=== PATIENT | female | born 1975 | race African-American/Black ===

== ENCOUNTER 2018-12-09 11:42 | Inpatient (IN) ==
[2018-12-09] MEDS ORDERED: PROMETHAZINE 25 MG/1 ML VIAL IM PRN (12:35)
[2018-12-09] MEDS ORDERED: DICYCLOMINE 10 MG CAPSULE PO PRN (12:38)
[2018-12-09] MEDS ORDERED: THIAMINE INJ 100 MG, FOLIC ACID INJ 1 MG, MULTIVITAMIN INJ 10 ML in SODIUM CHLORIDE 0.9... IV ONE (14:00)
[2018-12-09] MEDS: chlordiazePOXIDE 25 MG CAPSULE PO SCH ×2 (14:31→22:48)
[2018-12-09] MEDS: ONDANSETRON 4 MG/2 ML VIAL IV PRN (14:31)
[2018-12-09] MEDS: PREGABALIN 100 MG CAPSULE PO SCH ×2 (14:31→22:48)
[2018-12-09] MEDS: PANTOPRAZOLE 40 MG TABLET PO SCH (14:32)
[2018-12-09] MEDS: METHOCARBAMOL 750 MG TABLET PO PRN ×2 (14:34→23:45)
[2018-12-09] MEDS: HydrOXYzine PAMOATE 25 MG CAPSULE PO PRN (14:34)
[2018-12-09 14:56] LABS: Basophils % 0.3 % (0.0-0.8); Eosinophils # 0.1 10*3/uL (0.0-0.87); Eosinophils % 0.7 % (0.00-10.9); Hemoglobin 11.4 GM/DL (12.0-16.0); Immature Granulocytes % 0.3 %; Immature Granulocytes Absolute 0.03 #; Lymphocytes # 3.2 10*3/uL (1.4-4.0); Lymphocytes % 33.2 % (21.3-54.2); Mean Corpuscular HGB Conc 32.6 GM/DL (32-36); Mean Corpuscular Volume 82.7 FL (87-102); Mean Platelet Volume 12.2 FL (9.6-12.0); Monocytes % 7.1 % (1.7-12.7); Neutrophils % 58.4 % (38.7-73.9); Platelet Count 283 T/CUMM (130-400); Red Blood Count 4.23 MC/CUMM (3.8-5.5); Red Cell Distribution Width 17.2 % (9.3-17.3); White Blood Count 9.7 T/CUMM (4-12)
[2018-12-09 15:20] LABS: Alanine Aminotransferase 14 U/L (13-56); Albumin 3.6 G/DL (3.4-5.0); Alkaline Phosphatase 34 U/L (45-117); Aspartate Amino Transferase 8 U/L (0-37); Bilirubin,Total < 0.39 MG/DL (0.2-1.0); Blood Urea Nitrogen 12 MG/DL (7-18); Calcium 9.2 MG/DL (8.5-10.1); Glucose 108 MG/DL (74-106); Osmolality,Calculated 273.8 MOS/KG (273-304); Total Protein 8.3 G/DL (6.4-8.3)
[2018-12-09 15:34] LABS: Thyroid Stimulating Hormone 0.074 uIU/ml (0.358-3.74)
[2018-12-09] MEDS: ENOXAPARIN 40 MG/0.4 ML SYRINGE SUBCUT SCH (16:23)
[2018-12-09] MEDS: buPROPion SR 150 MG TABLET PO SCH ×2 (16:23→22:48)
[2018-12-09] MEDS: NICOTINE 21 MG/24 HR PATCH TRANSDERM SCH (16:23)
[2018-12-09] MEDS: ACETAMINOPHEN 325 MG TABLET PO PRN ×2 (16:25→23:45)
[2018-12-09] MEDS: MIRTAZAPINE 15 MG TABLET PO SCH (22:48)
[2018-12-09] MEDS: QUEtiapine 100 MG TABLET PO SCH (22:48)
[2018-12-09] MEDS: QUEtiapine 25 MG TABLET PO SCH (23:35)
[2018-12-10] MEDS: chlordiazePOXIDE 25 MG CAPSULE PO SCH ×4 (03:16→21:27)
[2018-12-10] MEDS: PANTOPRAZOLE 40 MG TABLET PO SCH (08:55)
[2018-12-10] MEDS: PREGABALIN 100 MG CAPSULE PO SCH ×2 (08:55→21:27)
[2018-12-10] MEDS: buPROPion SR 150 MG TABLET PO SCH ×2 (08:55→21:28)
[2018-12-10] MEDS: THIAMINE 100 MG TABLET PO SCH (08:55)
[2018-12-10] MEDS: NICOTINE 21 MG/24 HR PATCH TRANSDERM SCH (08:55)
[2018-12-10] MEDS: FOLIC ACID 1 MG TABLET PO SCH (08:55)
[2018-12-10] MEDS: METHOCARBAMOL 750 MG TABLET PO PRN ×3 (08:58→22:11)
[2018-12-10] MEDS: QUEtiapine 25 MG TABLET PO SCH ×2 (08:58→21:28)
[2018-12-10] MEDS ORDERED: VORTIOXETINE 20 MG PO SCH (09:00)
[2018-12-10] MEDS: ONDANSETRON 4 MG/2 ML VIAL IV PRN (12:10)
[2018-12-10] MEDS: ACETAMINOPHEN 325 MG TABLET PO PRN (13:24)
[2018-12-10] MEDS: HydrOXYzine PAMOATE 25 MG CAPSULE PO PRN (14:54)
[2018-12-10] MEDS ORDERED: KETOROLAC 30 MG/1 ML VIAL IM ONE (15:27)
[2018-12-10] MEDS: LORazepam 2 MG/1 ML VIAL IV PRN ×2 (15:38→22:11)
[2018-12-10] MEDS: ENOXAPARIN 40 MG/0.4 ML SYRINGE SUBCUT SCH (16:37)
[2018-12-10] MEDS ORDERED: ENOXAPARIN 40 MG/0.4 ML SYRINGE SUBCUT SCH (21:00)
[2018-12-10] MEDS: MIRTAZAPINE 15 MG TABLET PO SCH (21:27)
[2018-12-10] MEDS: QUEtiapine 100 MG TABLET PO SCH (21:28)
[2018-12-11] MEDS: chlordiazePOXIDE 25 MG CAPSULE PO SCH ×2 (05:38→13:43)
[2018-12-11] MEDS: LORazepam 2 MG/1 ML VIAL IV PRN ×2 (06:39→15:47)
[2018-12-11] MEDS: METHOCARBAMOL 750 MG TABLET PO PRN (08:42)
[2018-12-11] MEDS: QUEtiapine 25 MG TABLET PO SCH (08:42)
[2018-12-11] MEDS: PREGABALIN 100 MG CAPSULE PO SCH (08:42)
[2018-12-11] MEDS: NICOTINE 21 MG/24 HR PATCH TRANSDERM SCH (08:42)
[2018-12-11] MEDS: FOLIC ACID 1 MG TABLET PO SCH (08:42)
[2018-12-11] MEDS: buPROPion SR 150 MG TABLET PO SCH (08:42)
[2018-12-11] MEDS: PANTOPRAZOLE 40 MG TABLET PO SCH (08:42)
[2018-12-11] MEDS: THIAMINE 100 MG TABLET PO SCH (08:42)
[2018-12-11] MEDS: KETOROLAC 30 MG/1 ML VIAL IV SCH ×2 (09:36→15:49)
[2018-12-11] MEDS ORDERED: METAXALONE 800 MG TABLET PO SCH (15:00)
[2018-12-11 17:08] VITALS: BP 168/99
== END 2018-12-11 19:24 | disposition left against medical advice (07) | DRG 770 ==
LOC: N.4E 13:25
PROVIDERS: ADMIT Emergency Medicine; ATTEND Emergency Medicine

== ENCOUNTER 2019-01-12 09:49 | Inpatient (IN) ==
[2019-01-12 10:59] LABS: Basophils # 0.1 10*3/uL (0.0-0.2); Basophils % 0.4 % (0.0-0.8); Eosinophils # 0.1 10*3/uL (0.0-0.87); Eosinophils % 1.1 % (0.00-10.9); Hematocrit 36.6 VOL% (35.7-47.0); Hemoglobin 11.8 GM/DL (12.0-16.0); Immature Granulocytes % 0.5 %; Immature Granulocytes Absolute 0.06 #; Lymphocytes # 3.3 10*3/uL (1.4-4.0); Lymphocytes % 26.3 % (21.3-54.2); Mean Corpuscular HGB Conc 32.2 GM/DL (32-36); Mean Platelet Volume 13.1 FL (9.6-12.0); Neutrophils % 66.7 % (38.7-73.9); Platelet Count 229 T/CUMM (130-400); Red Blood Count 4.41 MC/CUMM (3.8-5.5); Red Cell Distribution Width 17.2 % (9.3-17.3); White Blood Count 12.6 T/CUMM (4-12)
[2019-01-12 11:24] LABS: Alanine Aminotransferase 15 U/L (13-56); Albumin 3.4 G/DL (3.4-5.0); Alkaline Phosphatase 35 U/L (45-117); Aspartate Amino Transferase 10 U/L (0-37); Bilirubin,Direct < 0.100 MG/DL (0.0-0.20); Bilirubin,Indirect 0.3 MG/DL (0.0-1.0); Bilirubin,Total < 0.39 MG/DL (0.2-1.0); Blood Urea Nitrogen 12 MG/DL (7-18); Calcium 9.3 MG/DL (8.5-10.1); Glucose 95 MG/DL (74-106); Osmolality,Calculated 278.4 MOS/KG (273-304)
[2019-01-12] MEDS ORDERED: chlordiazePOXIDE 25 MG CAPSULE PO SCH (12:00)
[2019-01-12] MEDS: HydrOXYzine PAMOATE 25 MG CAPSULE PO PRN ×2 (12:48→19:31)
[2019-01-12] MEDS: METHOCARBAMOL 750 MG TABLET PO PRN ×2 (12:48→19:33)
[2019-01-12] MEDS: DICYCLOMINE 10 MG CAPSULE PO PRN (12:48)
[2019-01-12] MEDS: SODIUM CHLORIDE 0.9% 1,000 ML IV SCH (12:49)
[2019-01-12] MEDS: BUPRENORPHINE SL TAB 2 MG TABLET SL SCH ×2 (15:37→20:52)
[2019-01-12] MEDS: NICOTINE 21 MG/24 HR PATCH TRANSDERM SCH (15:37)
[2019-01-12] MEDS: QUEtiapine 100 MG TABLET PO SCH (20:52)
[2019-01-12] MEDS: PREGABALIN 100 MG CAPSULE PO SCH (20:52)
[2019-01-12] MEDS: QUEtiapine 25 MG TABLET PO SCH (20:53)
[2019-01-12 23:09] LABS: Apearance,Urine CLEAR (Clear); Bilirubin,Urine Negative (Negative); Blood, Urine Negative (Negative); Glucose,Urine (UA) Negative (Negative); Hyaline Casts,Urine 11 /LPF (0-3); Ketones,Urine Negative (Negative); Mucus,Urine Occasional /LPF (Occasional); Nitrite,Urine Negative (Negative); Protein,Urine Negative; RBC,Urine 2 /HPF (0-4); Squamous Epithelial Cell,Urine Occasional /HPF (0-10); Urine Color Yellow (Yellow); Urine Specific Gravity 1.009 (1.001-1.035); Urine Urobilinogen < 2.0 EU/DL (0.2-1.0); WBC,Urine 2 /HPF (0-6)
[2019-01-13] MEDS: BUPRENORPHINE SL TAB 2 MG TABLET SL SCH ×4 (01:21→23:00)
[2019-01-13 04:45] LABS: Basophils # 0.1 10*3/uL (0.0-0.2); Basophils % 0.5 % (0.0-0.8); Eosinophils # 0.3 10*3/uL (0.0-0.87); Eosinophils % 3.2 % (0.00-10.9); Hematocrit 33.3 VOL% (35.7-47.0); Hemoglobin 10.8 GM/DL (12.0-16.0); Immature Granulocytes % 0.2 %; Immature Granulocytes Absolute 0.02 #; Lymphocytes # 6.2 10*3/uL (1.4-4.0); Lymphocytes % 57.4 % (21.3-54.2); Mean Corpuscular HGB Conc 32.4 GM/DL (32-36); Mean Corpuscular Volume 83.3 FL (87-102); Mean Platelet Volume 13.3 FL (9.6-12.0); Monocytes % 6.4 % (1.7-12.7); Neutrophils % 32.3 % (38.7-73.9); Platelet Count 204 T/CUMM (130-400); White Blood Count 10.7 T/CUMM (4-12)
[2019-01-13 05:17] LABS: Eosinophils 1 % (0-10); Lymphocytes 64 % (20-55); Reactive Lymphocytes 2+; Segmented Neutrophils 31 % (50-85); Total Cells Counted 100
[2019-01-13 05:18] LABS: Burr Cells 2+; Hypochromasia 1+; Platelet Estimate Normal
[2019-01-13 05:24] LABS: Risk Ratio 5.34; Thyroid Stimulating Hormone 2.11 uIU/ml (0.358-3.74); VLDL CHOLESTEROL 22.4 MG/DL
[2019-01-13 05:25] LABS: Calcium 8.7 MG/DL (8.5-10.1); Osmolality,Calculated 274.5 MOS/KG (273-304)
[2019-01-13] MEDS: NICOTINE 21 MG/24 HR PATCH TRANSDERM SCH (08:03)
[2019-01-13] MEDS: PREGABALIN 100 MG CAPSULE PO SCH ×3 (08:03→20:21)
[2019-01-13] MEDS: QUEtiapine 25 MG TABLET PO SCH ×3 (08:05→20:21)
[2019-01-13] MEDS: PANTOPRAZOLE 40 MG TABLET PO SCH (08:05)
[2019-01-13] MEDS ORDERED: NON-FORMULARY MEDICATION (Vortioxetine [Trintellix] 20 MG) PO SCH (10:30)
[2019-01-13] MEDS: SODIUM CHLORIDE 0.9% 1,000 ML IV SCH ×2 (16:22→16:23)
[2019-01-13] MEDS: METHOCARBAMOL 750 MG TABLET PO PRN ×2 (16:23→23:00)
[2019-01-13] MEDS: DICYCLOMINE 10 MG CAPSULE PO PRN (16:23)
[2019-01-13] MEDS: QUEtiapine 100 MG TABLET PO SCH (20:20)
[2019-01-13] MEDS: HydrOXYzine PAMOATE 25 MG CAPSULE PO PRN (23:00)
[2019-01-14 04:40] LABS: Basophils # 0.1 10*3/uL (0.0-0.2); Basophils % 0.6 % (0.0-0.8); Eosinophils # 0.4 10*3/uL (0.0-0.87); Immature Granulocytes % 0.2 %; Immature Granulocytes Absolute 0.02 #; Lymphocytes # 5.7 10*3/uL (1.4-4.0); Lymphocytes % 64.3 % (21.3-54.2); Mean Corpuscular HGB Conc 31.4 GM/DL (32-36); Mean Corpuscular Volume 84.1 FL (87-102); Mean Platelet Volume 12.8 FL (9.6-12.0); Monocytes % 5.5 % (1.7-12.7); Neutrophils % 25.4 % (38.7-73.9); Platelet Count 198 T/CUMM (130-400); Red Blood Count 4.16 MC/CUMM (3.8-5.5); Red Cell Distribution Width 17.2 % (9.3-17.3); White Blood Count 8.9 T/CUMM (4-12)
[2019-01-14] MEDS: SODIUM CHLORIDE 0.9% 1,000 ML IV SCH ×2 (04:46→17:15)
[2019-01-14 04:58] LABS: Osmolality,Calculated 277.3 MOS/KG (273-304)
[2019-01-14] MEDS: METHOCARBAMOL 750 MG TABLET PO PRN ×3 (05:04→21:34)
[2019-01-14 06:23] LABS: Anisocytosis Slight; Atypical Lymphocytes 1+; Band Neutrophils 2 % (0-10); Eosinophils 4 % (0-10); Lymphocytes 67 % (20-55); Macrocytosis Slight; Ovalocytes Few; Platelet Estimate Normal; Reactive Lymphocytes Few; Segmented Neutrophils 20 % (50-85); Total Cells Counted 100
[2019-01-14] MEDS: BUPRENORPHINE SL TAB 2 MG TABLET SL SCH ×2 (08:24→16:40)
[2019-01-14] MEDS: NICOTINE 21 MG/24 HR PATCH TRANSDERM SCH (08:24)
[2019-01-14] MEDS: PREGABALIN 100 MG CAPSULE PO SCH ×4 (08:24→22:12)
[2019-01-14] MEDS: PANTOPRAZOLE 40 MG TABLET PO SCH (08:24)
[2019-01-14] MEDS: QUEtiapine 25 MG TABLET PO SCH ×4 (08:24→22:17)
[2019-01-14] MEDS: HydrOXYzine PAMOATE 25 MG CAPSULE PO PRN (14:26)
[2019-01-14] MEDS: DICYCLOMINE 10 MG CAPSULE PO PRN (14:26)
[2019-01-14] MEDS: QUEtiapine 100 MG TABLET PO SCH (21:28)
[2019-01-15] MEDS: HydrOXYzine PAMOATE 25 MG CAPSULE PO PRN (00:26)
[2019-01-15] MEDS: BUPRENORPHINE SL TAB 2 MG TABLET SL SCH (03:34)
[2019-01-15 04:20] LABS: Basophils # 0.1 10*3/uL (0.0-0.2); Basophils % 0.7 % (0.0-0.8); Eosinophils # 0.4 10*3/uL (0.0-0.87); Eosinophils % 4.1 % (0.00-10.9); Hematocrit 34.4 VOL% (35.7-47.0); Hemoglobin 11.1 GM/DL (12.0-16.0); Immature Granulocytes % 0.1 %; Immature Granulocytes Absolute 0.01 #; Lymphocytes # 5.5 10*3/uL (1.4-4.0); Lymphocytes % 63.9 % (21.3-54.2); Mean Corpuscular HGB Conc 32.3 GM/DL (32-36); Mean Corpuscular Volume 83.1 FL (87-102); Mean Platelet Volume 13.7 FL (9.6-12.0); Monocytes % 5.9 % (1.7-12.7); Neutrophils % 25.3 % (38.7-73.9); Platelet Count 218 T/CUMM (130-400); Red Blood Count 4.14 MC/CUMM (3.8-5.5); Red Cell Distribution Width 17.1 % (9.3-17.3); White Blood Count 8.6 T/CUMM (4-12)
[2019-01-15 04:44] LABS: Calcium 8.8 MG/DL (8.5-10.1); Osmolality,Calculated 275.5 MOS/KG (273-304)
[2019-01-15 04:58] LABS: Eosinophils 2 % (0-10); Lymphocytes 60 % (20-55); Segmented Neutrophils 31 % (50-85); Total Cells Counted 100
[2019-01-15 04:59] LABS: Hypochromasia 1+; Platelet Estimate Normal; Reactive Lymphocytes 1+; Target Cells Few
[2019-01-15 05:00] LABS: Schistocytes Few
[2019-01-15 05:01] LABS: Atypical Lymphocytes Few
[2019-01-15] MEDS: SODIUM CHLORIDE 0.9% 1,000 ML IV SCH (06:01)
[2019-01-15 08:23] VITALS: BP 114/86
[2019-01-15] MEDS: PREGABALIN 100 MG CAPSULE PO SCH ×2 (08:59→09:03)
[2019-01-15] MEDS: QUEtiapine 25 MG TABLET PO SCH ×2 (09:00→09:02)
[2019-01-15] MEDS: PANTOPRAZOLE 40 MG TABLET PO SCH (09:02)
[2019-01-15] MEDS: NICOTINE 21 MG/24 HR PATCH TRANSDERM SCH (09:03)
[2019-01-15] MEDS: METHOCARBAMOL 750 MG TABLET PO PRN (09:06)
== END 2019-01-15 10:10 | disposition home or self-care (01) | DRG 772 ==
LOC: N.4E 10:06
PROVIDERS: ADMIT Internal Medicine; ATTEND Internal Medicine